=== PATIENT | male | born 1955 | race Caucasian/White ===

== ENCOUNTER 2020-11-03 02:25 | Emergency (ER) | payer OTHER ==
[~2020-11-03] VITALS: Ht 177.8 cm; Wt 99.8 kg
[2020-11-03] MEDS ORDERED: Amoxicillin500 MG PO (05:56)
== END 2020-11-03 06:26 | disposition home or self-care (01) ==
LOC: ER 02:25
DX: S01.81XA Laceration without foreign body of other part of head, initial encounter (principal); S01.112A Laceration without foreign body of left eyelid and periocular area, initial encounter; Z88.8 Allergy status to other drugs, medicaments and biological substances; Y08.89XA Assault by other specified means, initial encounter
CPT/HCPCS: 12013; 70450; 99284-25; A9270